=== PATIENT | male | born 1965 | race Caucasian/White ===

== ENCOUNTER 2018-10-31 10:16 | Emergency (ER) | payer OTHER ==
--- NOTE | 2018-10-31 12:19 | ER Document Report ---
ED Medical Screen (RME) - General Chief Complaint: Passed Out Prior to Arrival Stated Complaint: POSSIBLE SYNCOPE Time Seen by Provider: 10/31/18 11:37 Mode of Arrival: Ambulatory Information source: Patient Notes: This is a 53-year-old man with a history of 1-1/2 pack/day smoking who presents today after syncopal episode. Patient's states that he gets near syncopal after severe coughing fits. Patient had a coughing fit while he was on the couch and his son who is with him states that he put his head back and appeared to pass out. Patient awoke and was usual state of health. He denies any chest pain. He was recently at an urgent care and was started on azithromycin, prednisone, inhaler and Mucinex for bronchitis and a possible early walking pneumonia. Patient denies any fever, chills or significant sputum production. His primary care doctor is Dr. Dey in [place]. Patient is visiting his son here in town. Patient does report some TRAVEL OUTSIDE OF THE [place] IN LAST 30 DAYS: No - HPI Onset: Just prior to arrival Onset/Duration: Sudden Quality of pain: No pain Severity: None Pain Level: Denies Associated Symptoms: Cough (nonproductive). denies: Chest pain, Shortness of breath Exacerbated by: Coughing Relieved by: Remaining still Similar symptoms previously: Yes Recently seen / treated by doctor: Yes - Related Data Smoking: Cigarettes, Greater than 1 pack/day Frequency of alcohol use: Heavy Drug Abuse: None Allergies/Adverse Reactions: No Known Allergies Allergy (Verified 10/31/18 10:17) Past Medical History - General Information source: Patient - Social History Cigarette use (# per day): No Chew tobacco use (# tins/day): No Frequency of alcohol use: None Drug Abuse: None Lives with: Family Family history: None - Medical History Medical History: Negative Renal/ Medical History: Denies: Hx Peritoneal Dialysis Surgical Hx: Negative Review of Systems - Review of Systems Constitutional: denies: Chills, Fever EENT: No symptoms reported Cardiovascular: See HPI, Syncope. denies: Palpitations, Heart racing, Dyspnea Respiratory: Cough, Wheezing. denies: Hemoptysis, Sputum Gastrointestinal: No symptoms reported Genitourinary: No symptoms reported Male Genitourinary: No symptoms reported Musculoskeletal: No symptoms reported Skin: No symptoms reported Hematologic/Lymphatic: No symptoms reported Neurological/Psychological: No symptoms reported Physical Exam - Vital signs Vitals: Temp Pulse Resp BP Pulse Ox 98.1 F 71 14 135/94 H 98 10/31/18 10:20 10/31/18 10:20 10/31/18 10:20 10/31/18 10:20 10/31/18 10:20 Notes: Physical exam: GENERAL: Patient is alert and oriented x3, no acute distress. HEAD: Atraumatic, normocephalic. EYES: Pupils equal round and reactive to light, extraocular movements intact, sclera anicteric, conjunctiva are normal. ENT: TMs normal, nares patent, oropharynx clear without exudates. Moist mucous membranes. NECK: Normal range of motion, supple without obvious mass or JVD. LUNGS: Diffuse scattered rhonchi HEART: Regular rate and rhythm without murmurs, rubs or gallops. ABDOMEN: Soft, normoactive bowel sounds. No tenderness to palpation. No guarding, no rebound. No masses appreciated. EXTREMITIES: Normal range of motion, no pitting or edema. No clubbing or cyanosis. NEUROLOGICAL: Cranial nerves II through XII grossly intact. Normal speech, moving all extremities. PSYCH: Normal mood, normal affect. SKIN: Warm, Dry, normal turgor, no rashes or lesions noted. Course - Re-evaluation Re-evalutation: 10/31/18 12:[address] Dey in [facility] and is that the patient has COPD given his 1-1/2 pack/day smoking since age 16. He has a bronchitis type cough and he has diffuse rhonchi and wheezing. Dr. Dey knows the patient and plans to follow-up and arrange PFTs for the patient. I have had a long discussion with the patient and his and strongly advised him to stop smoking. I told him my concerns for COPD and that these episodes will just get worse. I let them know that I spoke to Tiburcio they will follow-up with him. - Vital Signs Vital signs: Temp Pulse Resp BP Pulse Ox 98.0 F 80 17 132/70 H 100 10/31/18 12:23 10/31/18 12:23 10/31/18 12:23 10/31/18 12:23 10/31/18 12:23 - EKG Interpretation by Me Rate: Normal Rhythm: NSR - EKG shows normal sinus rhythm with a ventricular rate of 68, no acute ST-T wave changes. QTC 417. Doctor's Discharge - Discharge Clinical Impression: Cough syncope Condition: Stable Disposition: HOME, SELF-CARE Instructions: Syncopal Episode ([facility]) Additional Instructions: As we discussed, I believe these near passing out episodes and today's passing out is related to severe coughing. Ultimately, I think this is from COPD. As we discussed, I want you to follow-up with Dr. Dey and he will be starting to do some pulmonary function tests with you. Continue with the prednisone, albuterol inhaler and antibiotic. Do not take the Mucinex they gave you in clinic: There is Mucinex and the cough medicine that I prescribed today. Also, do not take the Tessalon Perles while you are taking the cough syrup. Return to the ER for worsening shortness of breath or any concerns or getting worse. Prescriptions: Codeine Phosphate/Guaifenesin [Codeine-Guaifen 10-100 mg/5 ml] 5 ml PO Q6HP PRN #120 ml PRN Reason:
[2018-10-31 12:30] VITALS: BP 132/70
--- NOTE | 2018-10-31 15:14 | EKG REPORT ---
SEVERITY:- BORDERLINE ECG - SINUS RHYTHM : Confirmed by: Abdullahi Erwin 31-Oct-2018 15:14:15
== END 2018-10-31 12:24 | disposition home or self-care (01) ==
LOC: ER 10:16
DX: R55 Syncope and collapse (principal); R05 Cough; J44.9 Chronic obstructive pulmonary disease, unspecified; F17.210 Nicotine dependence, cigarettes, uncomplicated; R06.2 Wheezing
CPT/HCPCS: 93005; 93010; 99284